=== PATIENT | female | born 1960 | race Caucasian/White ===

== ENCOUNTER 2018-05-31 15:56 | Emergency (ER) | payer OTHER, MEDICARE ==
[~2018-05-31] VITALS: Ht 170.2 cm; Wt 78.9 kg
[2018-05-31] MEDS ORDERED: CYMBALTA20 MG PO (16:58)
[2018-05-31] MEDS ORDERED: SYNTHROID50 MCG PO (16:58)
[2018-05-31] MEDS ORDERED: METHADONE HCL10 MG PO (16:59)
[2018-05-31] MEDS ORDERED: MYSOLINE250 MG PO (16:59)
[2018-05-31] MEDS ORDERED: ROXICODONE15 MG PO (17:01)
[2018-05-31] MEDS ORDERED: SINGULAIR10 MG PO (17:02)
[2018-05-31] MEDS ORDERED: ZYRTEC10 M3 PO (17:02)
[2018-05-31] MEDS ORDERED: NASONEX17 GM NAS (17:10)
[2018-05-31] MEDS ORDERED: BRIMONIDINE TART5 M1 OP (17:11)
[2018-05-31] MEDS ORDERED: PENNSAID2 GM (17:12)
[2018-05-31] MEDS ORDERED: SODIUM SULFACE TOP (17:14)
[2018-05-31] MEDS ORDERED: CALCIUM600 MG PO (17:15)
[2018-05-31] MEDS ORDERED: VITAMIN D32000 UNI1 PO (17:16)
[2018-05-31] MEDS ORDERED: MULTI VITAMIN1 EACH PO (17:17)
[2018-05-31] MEDS ORDERED: BISOPROLOL FUMAR5 MG PO (17:18)
== END 2018-05-31 18:34 | disposition home or self-care (01) ==
LOC: ED 15:56
DX: S01.112A Laceration without foreign body of left eyelid and periocular area, initial encounter (principal); S13.9XXA Sprain of joints and ligaments of unspecified parts of neck, initial encounter; W01.198A Fall on same level from slipping, tripping and stumbling with subsequent striking against other object, initial encounter; E03.9 Hypothyroidism, unspecified; J45.909 Unspecified asthma, uncomplicated; Z79.899 Other long term (current) drug therapy; Z79.891 Long term (current) use of opiate analgesic
CPT/HCPCS: 72125; 99283

== ENCOUNTER 2019-03-13 07:10 | Day surgery (SDC) | payer OTHER, MEDICARE ==
[~2019-03-13] VITALS: Ht 170.2 cm; Wt 79.8 kg
[~2019-03-13 07:10] MED LIST: ALLEGRA ALLERG180 MG PO; BISOPROLOL FUMAR5 MG PO; BRIMONIDINE TART5 M1 OP; CALCIUM600 MG PO; CYMBALTA20 MG PO; METHADONE HCL10 MG PO; MULTI VITAMIN1 EACH PO; MYSOLINE250 MG PO; NASONEX17 GM NAS; PENNSAID2 GM; PROPRANOLOL HC120 MG PO; ROXICODONE15 MG PO; SINGULAIR10 MG PO; SODIUM SULFACE TOP; SYNTHROID50 MCG PO; VITAMIN D32000 UNI1 PO; ZYRTEC10 M3 PO
--- NOTE | 2019-03-13 09:57 | NUR ---
PT IS ALERT, ORIENTED AND SUPPORTED BY HER DAYA. BOTH ARE TRYING TO BE STRONG, PT ALSO EXPRESSED SOME MILD DISCOURAGEMENT IN HAVING TO HAVE ANOTHER PROCEDURE SO SOON TO HER NECK SURGERY LAST YEAR. EXPLAINED AND OUTLINED THE DAY FOR THEM. THEY BOTH THANKED ME AND PT EXPRESS GREAT SURPRISE THAT DR KAPLAN CALLED TO CHECK ON HER LAST NIGHT. PT REQUESTED PRAYER, WILL FOLLOW NEEDED.
--- NOTE | 2019-03-13 11:19 | NUR ---
03/13/19 [place] Terri Hancock 1111-PATIENT ARRIVED TO PACU ON 8L MASK PLACED ON 6L RR EVEN. NONAROUSABLE. SB/SR. RIGHT BREAST INCISION CDI. 1118-PATIENT SLIGHTLY LIFTS EYEBROWS TO VERBAL STIMULI EYES CLOSED. NOT ABLE TO FOLLOW COMMANDS. RR EVEN. 6L MASK SLEEPING
[2019-03-13] MEDS ORDERED: MOTRIN IB200 MG PO (11:32)
[2019-03-13] MEDS ORDERED: TYLENOL325 M1 PO (11:33)
--- NOTE | 2019-03-13 12:09 | NUR ---
PATIENT IN ROOM WITH SPOUSE. C/O PAIN TO RIGHT BREAST 06/02 HASN'T TAKEN CHRONIC PAIN MEDS SINCE YESTURDAY.
--- NOTE | 2019-03-13 12:14 | NUR ---
( [id number] late entery) WENT TO XRAY.
--- NOTE | 2019-03-13 14:15 | NUR ---
PATIENT WALKED TO BATHROOM WITHOUT INCREASED PAIN OR DIZZYNESS.
--- NOTE | 2019-03-15 11:23 | OR ---
[facility] [address], [place] [address] Signed DATE OF OPERATION: 03/13/2019 SURGEON: Tre Kaplan MD PREOPERATIVE DIAGNOSIS: Right abnormal mammogram, BI-RADS category 4. POSTOPERATIVE DIAGNOSES: Multiple medical problems including chronic pain syndrome, opioid dependent. PROCEDURE PERFORMED: Right needle-localized lumpectomy. ANESTHESIA: General LMA; Stephanie Castillo CRNA. INDICATIONS: This 58-year-old white woman is a patient of Dr. Rogelio Kendrick who now practices in [place], [place]. She is known to have chronic pain syndrome, is maintained with oxycodone, methadone, and numerous other medications for other medical problems. She underwent recent mammography, having had annual mammographies for some time, showing an abnormality of the right breast in the lateral aspect, suspicious for malignancy. A planned image-guided core biopsy was anticipated, but ultrasound showed a "river blood vessels" surrounding the lesion and a closed (image-guided) biopsy was deemed inadvisable opting rather for a needle localized excision of the abnormality. The risk of bleeding, infection, need for additional treatment should malignancy be confirmed, and so forth were all reviewed with the patient and her who agree and wished to proceed with operation. It is anticipated that needle localized excision will be wide enough that if the lesion is malignant as is suspected that a negative margin will be obtained. FINDINGS: Good localization was noted by image guidance with wire passing into the lesion itself. Wide resection was undertaken and imaging of the specimen with ultrasound confirmed the lesion in question to be excised fully. There were some blood vessels in the area, but they were not excessively large. Good hemostasis was noted as well as good cosmesis. DESCRIPTION OF PROCEDURE: The patient was received from radiology suite with the wire emanating from the lateral superior aspect of the right breast. She was taken to the operating room, given a Electronically Signed By: TRE KAPLAN MD 03/15/19 1123 PATIENT NAME: OSIEL MCMILLAN OPERATIVE REPORT DATE OF : 58 REPORT #: [id number] PHYSICIAN: TRE KAPLAN MD PCP: ROGELIO KENDRICK DO REPORT IS CONFIDENTIAL AND NOT TO BE RELEASED WITHOUT AUTHORIZATION [facility] [address], [place] [address] Signed general endotracheal anesthetic. Preoperative antibiotic Ancef was given. Sequential compression device stockings used and heparin subcutaneously administered. The wire was trimmed to length after patient was fully anesthetized with a general LMA type device. The right breast was then isolated and prepared with a spray of Betadine solution. Use of the imaging studies confirming wire to be well positioned was undertaken. A curvilinear incision was made lateral to the breast. Dissection carried through the dermis with electrocautery. A flap was raised medially allowing for delivery of the wire. The parenchyma of the breast was grasped with an Allis clamp and wide resection undertaken with electrocautery. Special care and time were taken to avoid what perceived to be additional blood vessels in the region of the lesion in question. Wide resection was undertaken. Excised specimen was probably 6 cm in aggregate. Complete excision was undertaken. Specimen sent for specimen radiograph. Rather than x-ray, an ultrasound was performed, which confirmed the lesion to be in the excised specimen. The specimen was marked with a short stitch superior, long stitch lateral and a double stitch in the deep margin. Irrigation was undertaken in the biopsy cavity with sterile water. Hemostasis was assured with electrocautery and a few sutures of 2-0 Vicryl. The parenchyma was reapproximated with interrupted 2-0 Vicryl. Examination of the skin edges itself showed an affective traction on the medial portion of the incision, for which, additional resection of that redundant skin was accomplished to allow for more reliable good healing. The skin was then closed in running subcuticular 3-0 Vicryl and Steri-Strips were applied as was a Mepilex silver sponge dressing and an OpSite. BLOOD LOSS: Minimal. COMPLICATIONS: None. COUNTS: Sponge, needle and instruments counts reported as correct x3. MD ALFREDA Ramirez/MODL /[id number] Electronically Signed By: TRE KAPLAN MD 03/15/19 1123 PATIENT NAME: OSIEL MCMILLAN OPERATIVE REPORT DATE OF : 58 REPORT #: [id number] PHYSICIAN: RTE KAPLAN MD PCP: ROGELIO KENDRICK DO REPORT IS CONFIDENTIAL AND NOT TO BE RELEASED WITHOUT AUTHORIZATION [address] [address] Signed cc: MD Rogelio Pierre DO Copies: SETH BRYAN MD, FRANK E DO ~ Electronically Signed By: TRE KAPLAN MD 03/15/19 1123 PATIENT NAME: OSIEL MCMILLAN OPERATIVE REPORT DATE OF : 58 REPORT #: [id number] PHYSICIAN: TRE KAPLAN MD PCP: ROGELIO KENDRICK DO REPORT IS CONFIDENTIAL AND NOT TO BE RELEASED WITHOUT AUTHORIZATION
== END 2019-03-13 15:01 | disposition home or self-care (01) ==
LOC: DS 07:10 → OPS 07:10 → US 08:30 → OPS 08:30 → EDSTATUS 08:30 → OPS 15:01
PROVIDERS: Surgery
PROC: 0HBT0ZZ Excision of Right Breast, Open Approach (ICD-10-PCS; principal; 2019-03-13 09:15)
DX: C50.911 Malignant neoplasm of unspecified site of right female breast (principal); G89.4 Chronic pain syndrome; F11.20 Opioid dependence, uncomplicated; J45.909 Unspecified asthma, uncomplicated; F32.9 Major depressive disorder, single episode, unspecified; E03.9 Hypothyroidism, unspecified; G47.30 Sleep apnea, unspecified; Z99.89 Dependence on other enabling machines and devices; Z88.8 Allergy status to other drugs, medicaments and biological substances; Z79.899 Other long term (current) drug therapy
CPT/HCPCS: 19285; 76970; 77065; J0690; J1100; J1644; J1885; J2250; J2405; J2704; J3010; J7120

== ENCOUNTER 2022-08-11 19:57 | Emergency (ER) | payer OTHER, MEDICARE ==
[~2022-08-11] VITALS: Ht 170.2 cm; Wt 81.7 kg
[~2022-08-11 19:57] MED LIST changes: +MOTRIN IB200 MG PO; +TYLENOL325 M1 PO
[2022-08-11] MEDS ORDERED: PROMETHAZINE HC25 MG PR (22:18)
[2022-08-11] MEDS ORDERED: ONDANSETRON ODT8 MG PO (22:18)
== END 2022-08-11 23:17 | disposition home or self-care (01) ==
LOC: ED 19:57
DX: R11.2 Nausea with vomiting, unspecified (principal); T50.B95A Adverse effect of other viral vaccines, initial encounter; J45.909 Unspecified asthma, uncomplicated; E03.9 Hypothyroidism, unspecified; Z88.8 Allergy status to other drugs, medicaments and biological substances; Z79.899 Other long term (current) drug therapy
CPT/HCPCS: 36415; 80053; 81001; 83690; 85025; 87502; A9270; J1790; J2270; J2405; J7030; U0003

== ENCOUNTER 2024-11-14 13:05 | Emergency (ER) | payer MEDICARE, OTHER ==
[~2024-11-14] VITALS: Ht 170.2 cm; Wt 81.6 kg
[~2024-11-14 13:05] MED LIST changes: +ANASTROZOLE1 MG PO; +BREO ELLIPTA I1 EACH INH; +CREON DR 24,001 EACH PO; +LOSARTAN POTAS100 MG PO; +ONDANSETRON HCL8 MG PO; +ONDANSETRON ODT8 MG PO; +OXYBUTYNIN CHLO10 MG PO; +PROCHLORPERAZIN10 MG PO; +PROMETHAZINE HC25 MG PR
[2024-11-14] MEDS ORDERED: SODIUM CHLORIDE 0.9% 500 ML IV PRN (14:00)
[2024-11-14 14:30] LABS: BASOPHILS 0.8 % (0-2); EOSINOPHILS 2.5 % (0-6); HEMATOCRIT 36.9 % (35.0-50.0); HEMOGLOBIN 12.3 g/dL (12.0-18.0); LYMPHOCYTES 13.3 % (24-44); MCH 30.3 (27-36); MCHC 33.4 g/dl (30-36); MCV 90.7 fl (81-99); MONOCYTES 6.6 % (0-12); NEUTROPHILS 76.8 % (39-80); PLATELET COUNT 367 K/uL (140-440); RBC 4.07 M/ul (4.3-5.7); RDW 13.7 (10.5-15.0)
[2024-11-14 14:47] LABS: ALBUMIN 3.2 g/dL (3.4-5.0); ALBUMIN/GLOBULIN RATIO 0.67 (1.1-2.4); ANION GAP 10.7 (7-21); BILIRUBIN, TOTAL 0.4 ng/dL (0.2-1.0); BUN/CREATININE RATIO 18.58 (6.0-28.6); CALCIUM 8.7 mg/dL (8.5-10.1); CREATININE, SERUM 1.13 mg/dL (0.55-1.02); MAGNESIUM 2.2 mg/dL (1.8-2.4); POTASSIUM 3.7 mmol/L (3.5-5.1)
[2024-11-14 18:56] VITALS: BP 129/75
--- NOTE | 2024-11-14 22:02 | EKG ---
[facility] [address] [place] [address] Signed Sinus bradycardia with premature atrial complexes Otherwise normal ECG No previous ECGs available Confirmed by Stanley Bethea MD () on 11/14/2024 10:02:24 PM Electronically Signed By: STANLEY BETHEA MD 11/14/242201 PATIENT NAME: OSIEL MCMILLAN Electrocardiogram DATE OF : 58 PHYSICIAN: STANLEY BETHEA MD REPORT #: [id number] REPORT IS CONFIDENTIAL AND NOT TO BE RELEASED WITHOUT AUTHORIZATION
== END 2024-11-14 18:56 | disposition home or self-care (01) ==
LOC: ED 13:05
PROVIDERS: Emergency Medicine
DX: R55 Syncope and collapse (principal); J45.909 Unspecified asthma, uncomplicated; E03.9 Hypothyroidism, unspecified; Z88.8 Allergy status to other drugs, medicaments and biological substances; Z79.899 Other long term (current) drug therapy; Z79.890 Hormone replacement therapy
CPT/HCPCS: 36415; 70450; 71260; 72125; 73110; 80053; 83735; 84484; 85025; 85379; 93005; 93010; 99284-25; Q9967

== ENCOUNTER 2025-08-09 15:32 | Emergency (ER) | payer OTHER, MEDICARE ==
[~2025-08-09] VITALS: Ht 170.2 cm; Wt 80.0 kg
[~2025-08-09 15:32] MED LIST changes: +AMLODIPINE BESYL5 MG PO; +BACLOFEN10 MG PO; +CIPRO500 MG PO; +HYDROCHLOROTHIA25 MG PO; +LIDOCAINE-PRILOC5 GM; +METRONIDAZOLE500 MG PO; +TERBINAFINE HC250 MG PO; +VENTOLIN HFA18 GM INH
[2025-08-09 18:01] VITALS: BP 129/76
== END 2025-08-09 18:02 | disposition home or self-care (01) ==
LOC: ED 15:32
DX: S83.91XA Sprain of unspecified site of right knee, initial encounter (principal); S93.401A Sprain of unspecified ligament of right ankle, initial encounter; E03.9 Hypothyroidism, unspecified; J45.909 Unspecified asthma, uncomplicated; Z88.8 Allergy status to other drugs, medicaments and biological substances; Z79.890 Hormone replacement therapy; Z79.51 Long term (current) use of inhaled steroids; Z79.899 Other long term (current) drug therapy; W01.0XXA Fall on same level from slipping, tripping and stumbling without subsequent striking against object, initial encounter
CPT/HCPCS: 73560; 73610; 99283